=== PATIENT | female | born 1960 | race Caucasian/White ===

== ENCOUNTER → 2019-09-29 | Day surgery (SDC) | payer OTHER ==
--- NOTE | 2019-10-02 13:46 | PATH ---
Surgical Pathology Report Patient Name: NENITA PRABHAKAR Med. Rec. #: [id number] /Age/Gender: 1960 (Age: 58) / F Account: [id number] [facility] Taken: 09/29/2019 Received: 09/29/2019 Reported: 10/02/2019 Physicians: Chloe Dalton M.D. Specimen(s) Received LEFT BREAST CORE BIOPSY 5N8 Clinical History Nonpalpable lesion Ultrasound findings: Probably benign Final Diagnosis BREAST, LEFT, 5:00, 8 CM FN, CORE BIOPSY: BENIGN FIBROADIPOSE TISSUE SHOWING STROMAL FIBROSIS. (SEE NOTE). Note: No glandular breast parenchyma is identified. Electronically Signed Carine Baumann M.D. Gross Description Received in formalin labeled "left breast biopsy 5:00, 8 cmfn," is a 1.5 x 1.2 x 0.2 cm aggregate of zaraet-yellow fragments of fibroadipose tissue. The formalin is filtered and the specimen is entirely submitted in one cassette. Time to formalin fixation: < 1 minute Total formalin fixation time: Approximately 6 hours. /09/29/2019 saudi/09/29/2019
--- NOTE | 2019-10-02 21:03 | OP ---
DATE OF OPERATION: 09/29/2019 PREOPERATIVE DIAGNOSIS: Left breast mass 5 o'clock, 8 cm from the nipple. POSTOPERATIVE DIAGNOSIS: Left breast mass 5 o'clock, 8 cm from the nipple. PROCEDURE: Left ultrasound guided core biopsy with clip placement. ANESTHESIA: Local. ATTENDING SURGEON: Chloe Dalton M.D. ESTIMATED BLOOD LOSS: Minimal. COMPLICATIONS: None. DESCRIPTION OF PROCEDURE: Patient is made aware of the risks and benefits of the procedure and consented. She was placed in the supine position. Under sterile conditions 1% lidocaine for local anesthesia skin. Using a 10 gauge biopsy device through lateral approach under ultrasound guidance, multiple cores were obtained and submitted to pathology. Likewise under ultrasound guidance, a U-shaped clip was placed into the biopsy region. Well tolerated by the patient. Steri-Strips and a sterile bandage was applied. We will contact her with the results. CHLOE DALTON M.D. [id number]
== END | disposition home or self-care (01) ==
LOC: FRADUS-SUR 14:24
PROVIDERS: ATTEND Surgery Surgical Oncology
PROC: 0HBU3ZX Excision of Left Breast, Percutaneous Approach, Diagnostic (ICD-10-PCS; principal; 2019-09-29)
DX: N60.32 Fibrosclerosis of left breast (principal); N63.23 Unspecified lump in the left breast, lower outer quadrant
CPT/HCPCS: 19083; 87899; 88305-TC; A4648